=== PATIENT | male | born 1955 | race Caucasian/White ===

== ENCOUNTER → 2016-08-20 | Outpatient (CLI) | payer OTHER | LOC: HEART 5 13:03 | DX: I73.9 Peripheral vascular disease, unspecified (principal) ==

== ENCOUNTER 2021-01-24 19:39 | Inpatient (IN) | payer OTHER ==
[~2021-01-24] VITALS: Ht 175.3 cm; Wt 91.2 kg
[2021-01-24] MEDS ORDERED: ASPIRIN EC81 MG PO (22:35)
[2021-01-24] MEDS ORDERED: ROPINIROLE HCL1 MG PO (22:36)
[2021-01-24] MEDS ORDERED: GABAPENTIN600 MG PO (22:38)
[2021-01-24] MEDS ORDERED: HYDROCODON-ACE1 EAC6 PO (22:38)
[2021-01-24] MEDS ORDERED: LEVALBUTER1.25 MG/3 INH (22:52)
[2021-01-25 08:20] LABS: HEMOGLOBIN 12.8 gm/dl (14.0-17.5); RED BLOOD COUNT 4.29 M/UL (4.20-5.50); WHITE BLOOD COUNT 5.7 K/UL (4.5-11.0)
[2021-01-25 09:24] LABS: BUN/CREATININE RATIO 13 (0-10)
[2021-01-25] MEDS ORDERED: PROAIR HFA8.5 GM INH (09:49)
[2021-01-25] MEDS ORDERED: LOPRESSOR 25 MG25 MG PO (09:51)
[2021-01-25] MEDS ORDERED: SYNTHROID75 MCG PO (09:52)
[2021-01-25] MEDS ORDERED: NEXIUM40 MG PO (09:52)
[2021-01-25] MEDS ORDERED: LEXAPRO TAB 1010 MG PO (09:53)
[2021-01-25] MEDS ORDERED: KLONOPIN1 MG PO (09:56)
[2021-01-25] MEDS ORDERED: SIMVASTATIN20 MG PO (22:36)
[2021-01-25] MEDS ORDERED: WARFARIN SODIUM5 MG PO (22:37)
[2021-01-25] MEDS ORDERED: ALBUTEROL2.5 MG/3 M INH (22:52)
[2021-01-26 04:18] LABS: HEMOGLOBIN 12.6 gm/dl (14.0-17.5); RED BLOOD COUNT 4.2 M/UL (4.20-5.50); WHITE BLOOD COUNT 7.2 K/UL (4.5-11.0)
[2021-01-26 04:44] LABS: BUN/CREATININE RATIO 15 (0-10)
[2021-01-27 02:59] LABS: HEMOGLOBIN 12.5 gm/dl (14.0-17.5); RED BLOOD COUNT 4.08 M/UL (4.20-5.50); WHITE BLOOD COUNT 6.7 K/UL (4.5-11.0)
[2021-01-27 03:43] LABS: BUN/CREATININE RATIO 13 (0-10)
[2021-01-28 02:11] LABS: HEMOGLOBIN 12.4 gm/dl (14.0-17.5); RED BLOOD COUNT 4.07 M/UL (4.20-5.50); WHITE BLOOD COUNT 5.4 K/UL (4.5-11.0)
[2021-01-28 02:42] LABS: BUN/CREATININE RATIO 15 (0-10)
[2021-01-28] MEDS ORDERED: ATORVASTATIN CA20 MG PO (14:24)
[2021-01-28] MEDS ORDERED: NICOTINE PATCH1 EAC2 TOP (14:24)
[2021-01-28] MEDS ORDERED: LOPRESSOR 25 MG25 MG PO (14:24)
[2021-01-28] MEDS ORDERED: CLOPIDOGREL75 MG PO (14:35)
[2021-01-28] MEDS ORDERED: ISOSORBIDE MONO20 MG PO (14:35)
[2021-01-28] MEDS ORDERED: NITROSTAT 0.40.4 MG SL (14:35)
[2021-01-28] MEDS ORDERED: FAMOTIDINE20 MG PO (14:35)
== END 2021-01-28 15:25 | disposition home or self-care (01) | DRG 281 ==
LOC: PROG CARE 19:39
PROVIDERS: Internal Medicine; Internal Medicine Cardiovascular Disease; ADMIT Internal Medicine
PROC: B24BZZZ Ultrasonography of Heart with Aorta (ICD-10-PCS; 2021-01-25)
PROC: 4A023N7 Measurement of Cardiac Sampling and Pressure, Left Heart, Percutaneous Approach (ICD-10-PCS; principal; 2021-01-27)
PROC: B2111ZZ Fluoroscopy of Multiple Coronary Arteries using Low Osmolar Contrast (ICD-10-PCS; 2021-01-27)
PROC: B2151ZZ Fluoroscopy of Left Heart using Low Osmolar Contrast (ICD-10-PCS; 2021-01-27)
DX: I21.4 Non-ST elevation (NSTEMI) myocardial infarction (principal); N17.9 Acute kidney failure, unspecified; I25.10 Atherosclerotic heart disease of native coronary artery without angina pectoris; Z95.5 Presence of coronary angioplasty implant and graft; I11.0 Hypertensive heart disease with heart failure; I50.9 Heart failure, unspecified; I73.9 Peripheral vascular disease, unspecified; F41.9 Anxiety disorder, unspecified; I34.0 Nonrheumatic mitral (valve) insufficiency; E78.5 Hyperlipidemia, unspecified; Z82.49 Family history of ischemic heart disease and other diseases of the circulatory system; F17.210 Nicotine dependence, cigarettes, uncomplicated; Z83.3 Family history of diabetes mellitus; Z98.890 Other specified postprocedural states; Z88.8 Allergy status to other drugs, medicaments and biological substances; Z95.1 Presence of aortocoronary bypass graft; Z79.01 Long term (current) use of anticoagulants
CPT/HCPCS: ECHO; 36415; 80053; 80061; 82550; 82553; 83036; 83735; 83880; 84100; 84484; 84550; 85025; 85610; 86140; 93005; 93306; C1894; J1644; J2250; J2930; J3010; J7030; Q9967

== ENCOUNTER 2021-11-24 15:09 | Emergency (ER) | payer OTHER ==
[~2021-11-24] VITALS: Ht 152.4 cm; Wt 86.2 kg
[~2021-11-24 15:09] MED LIST: ALBUTEROL2.5 MG/3 M INH; ASPIRIN EC81 MG PO; ATORVASTATIN CA20 MG PO; CLOPIDOGREL75 MG PO; FAMOTIDINE20 MG PO; GABAPENTIN600 MG PO; HYDROCODON-ACE1 EAC6 PO; ISOSORBIDE MONO20 MG PO; KLONOPIN1 MG PO; LEVALBUTER1.25 MG/3 INH; LEXAPRO TAB 1010 MG PO; LOPRESSOR 25 MG25 MG PO; NEXIUM40 MG PO; NICOTINE PATCH1 EAC2 TOP; NITROSTAT 0.40.4 MG SL; PROAIR HFA8.5 GM INH; ROPINIROLE HCL1 MG PO; SIMVASTATIN20 MG PO; SYNTHROID75 MCG PO; WARFARIN SODIUM5 MG PO
[2021-11-24 16:16] LABS: HEMOGLOBIN 9.1 gm/dl (14.0-17.5); RED BLOOD COUNT 3.38 M/UL (4.20-5.50); WHITE BLOOD COUNT 5.2 K/UL (4.5-11.0)
[2021-11-24 16:45] LABS: BUN/CREATININE RATIO 10 (0-10)
[2021-11-24] MEDS ORDERED: LASIX TAB 20 MG20 MG PO (22:45)
== END 2021-11-25 04:05 | disposition home or self-care (01) ==
LOC: ER1 15:09
DX: I77.9 Disorder of arteries and arterioles, unspecified (principal); I73.9 Peripheral vascular disease, unspecified; J18.9 Pneumonia, unspecified organism; D64.9 Anemia, unspecified; E78.5 Hyperlipidemia, unspecified; I10 Essential (primary) hypertension; Z95.1 Presence of aortocoronary bypass graft; F17.200 Nicotine dependence, unspecified, uncomplicated; Z20.822 Contact with and (suspected) exposure to COVID-19
CPT/HCPCS: 71045; 75635; 80053; 82550; 82553; 83605; 83880; 84484; 85025; 85610; 85730; 87040; 93005; 93925; 93970; 96374; 96375; 96376; 99284; J1170; J1940; J2270; J2405; J2543; Q9967; U0002